=== PATIENT | male | born 1955 | race Caucasian/White ===

== ENCOUNTER 2016-03-21 14:40 | Day surgery (SDC) | payer OTHER ==
[~2016-03-21] VITALS: Ht 175.3 cm; Wt 93.2 kg
[~2016-03-21 14:40] MED LIST: AMBIEN; LIPITOR; RAPAFLO; TRAMADOL; ZOLOFT
[2016-03-21 15:26] VITALS: Ht 175.3 cm; Wt 93.2 kg
[2016-03-21] MEDS ORDERED: TRAZ50TA18 PO (15:38)
[2016-03-21] MEDS ORDERED: GABA250S4 PO (15:38)
[2016-03-21] MEDS ORDERED: HYDR-906 PO (15:38)
[2016-03-21] MEDS ORDERED: DUTA0.5C PO (15:38)
[2016-03-21 15:55] VITALS: BP 148/79; PULSE 55; RESP 18
[2016-03-21] MEDS ORDERED: LIDOCAINE 2% (SDV) 5 ML INJ ONE (15:55)
[2016-03-21] MEDS ORDERED: PROPOFOL 20 ML ONE (15:55)
--- NOTE | 2016-03-21 17:31 | GILP ---
DATE OF PROCEDURE: 03/21/2016 PROCEDURE: Esophagogastroduodenoscopy with biopsies. SURGEON: Emily Falk MD PREMEDICATION: Monitored anesthesia care by anesthesiologist. BRIEF HISTORY AND INDICATIONS: The patient with dysphagia. TECHNIQUE: After informed consent, with the patient/relatives understanding the procedure, its indic ations, potential risks and complications, including but not limited to: allergic reaction, bleeding , perforation or infection, and after all pertinent questions were answered to the patients satisfac tion, the patient/relatives signed witnessed informed consent. Following this, premedication was administered slowly IV push under careful cardiovascular and respi ratory monitoring with pulse oximetry, automatic blood pressure and sales and marketing intern. Once the sedative effect was achieved the patient was place in the left lateral decubitus, the panen doscope was introduced and advanced under visual control. 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 Biopsies were obta ined of the mid esophagus to rule out eosinophilic esophagitis. There is also erythema and edema of the mucosa at the EG junction, which is mild in degree. STOMACH: Upon entrance to the stomach, air was insufflated, the gastric bourgeois distended normally. There is erythema and edema of the mucosa of the antrum. Several linear gastric ulceration measurin g 5 or 6 mm each are identified. Biopsies were obtained to rule out H. pylori infection. PYLORUS: The pylorus appears patent and within normal limits, with no evidence of gastric outlet ob struction. DUODENUM: The duodenal mucosa was carefully examined in the duodenal bulb as well as the second por tion of the duodenum and appears unremarkable with no evidence of duodenitis, ulcer or neoplasm. The instrument was then withdrawn, the patient tolerated the procedure well and was transfer out of the endoscopy suite awake, and in good condition to continue recovery under observation IMPRESSION: 1. Trachealization of the esophagus, rule out eosinophilic esophagitis, biopsies obtained. 2. Mild distal esophagitis. 3. Several linear gastric ulcerations measuring 5 to 6 mm, benign endoscopic appearance, no stigmat a. Biopsies obtained to rule out Helicobacter pylori infection. PLAN: The patient will be treated with omeprazole 40 mg daily. Pathology will be reviewed as soon as available. Followup endoscopy in 8 weeks is recommended to assess healing. Dictated By: EMLIY FALK MS/RUMA Conf#: [id number] DID#: [id number]
== END 2016-03-22 08:19 | disposition home or self-care (01) ==
LOC: GIL 14:40
PROVIDERS: ATTEND Internal Medicine Gastroenterology
DX: R10.13 Epigastric pain (principal); R12 Heartburn; R13.10 Dysphagia, unspecified; R14.3 Flatulence; I10 Essential (primary) hypertension; C61 Malignant neoplasm of prostate; E07.9 Disorder of thyroid, unspecified; K22.8 Other specified diseases of esophagus; K20.9 Esophagitis, unspecified; K25.9 Gastric ulcer, unspecified as acute or chronic, without hemorrhage or perforation
CPT/HCPCS: 43239; 88305; 88312; Z7610

== ENCOUNTER 2016-06-18 11:39 | Day surgery (SDC) | payer OTHER ==
[~2016-06-18] VITALS: Ht 175.3 cm; Wt 93.1 kg
[~2016-06-18 11:39] MED LIST changes: -AMBIEN; +DUTA0.5C PO; +GABA250S4 PO; +HYDR-906 PO; -LIPITOR; -TRAMADOL; +TRAZ50TA18 PO
[2016-06-18 12:29] VITALS: Ht 175.3 cm; Wt 93.1 kg
[2016-06-18] MEDS ORDERED: PROPOFOL 20 ML ONE (15:05)
--- NOTE | 2016-06-19 04:46 | GILP ---
DATE OF PROCEDURE: 06/18/2016 PROCEDURE: Esophagogastroduodenoscopy with biopsies. BRIEF HISTORY AND INDICATION: The patient is here for followup of gastric ulceration. PREMEDICATION: Monitored anesthesia care by anesthesiologist. SURGEON: Emily Falk MD INSTRUMENT USED: Olympus panendoscope. TECHNIQUE: After informed consent, with the patient/relatives understanding the procedure, its indic ations, potential risks and complications, including but not limited to: allergic reaction, bleeding , perforation or infection, and after all pertinent questions were answered to the patients satisfac tion, the patient/relatives signed witnessed informed consent. Following this, premedication was administered slowly IV push under careful cardiovascular and respi ratory monitoring with pulse oximetry, automatic blood pressure and balloon seller. Once the sedative effect was achieved the patient was place in the left lateral decubitus, the panen doscope was introduced and advanced under visual control. Careful examination of the upper gastrointestinal tract, both on insertion as well as withdrawal of the instrument disclosed the following findings: ESOPHAGUS: The distal esophagus shows erythema and edema of the mucosa of a mild degree. STOMACH: Upon entrance to the stomach, air was insufflated, the gastric bourgeois distended normally. The previously noted gastric ulceration has completely healed. There is erythema and edema of the mucosa of a moderate degree. Biopsies were obtained to rule out H. pylori infection. PYLORUS: The pylorus appears patent and within normal limits, with no evidence of gastric outlet ob struction. DUODENUM: The duodenal mucosa was carefully examined in the duodenal bulb as well as the second por tion of the duodenum and appears unremarkable with no evidence of duodenitis, ulcer or neoplasm. The instrument was then withdrawn, the patient tolerated the procedure well and was transfer out of the endoscopy suite awake, and in good condition to continue recovery under observation IMPRESSION: 1. Mild distal esophagitis. 2. Healed gastric ulceration. 3. Gastritis, rule out Helicobacter pylori infection. PLAN: The patient will be treated with PPIs. Further recommendation will depend on his clinical co urse as well as review of biopsies. Dictated By: EMILY FALK MS/RUMA Conf#: [id number] DID#: [id number]
== END 2016-06-18 16:01 | disposition home or self-care (01) ==
LOC: GIL 11:39
PROVIDERS: ATTEND Internal Medicine Gastroenterology
DX: K29.50 Unspecified chronic gastritis without bleeding (principal); K21.0 Gastro-esophageal reflux disease with esophagitis; I10 Essential (primary) hypertension; E07.9 Disorder of thyroid, unspecified; C61 Malignant neoplasm of prostate; G89.29 Other chronic pain; M54.9 Dorsalgia, unspecified; F32.9 Major depressive disorder, single episode, unspecified
CPT/HCPCS: 43239; 88305; 88312; Z7610